=== PATIENT | female | born 1995 | race Caucasian/White ===

== ENCOUNTER 2017-01-04 19:49 | Emergency (ER) | payer BC ==
--- NOTE | 2017-01-04 20:22 | EDPHY ---
H & P Stated Complaint: ABD PAIN, FEVER 101 Time Seen by Provider: 01/04/17 20:04 HPI/ROS: CHIEF COMPLAINT: Fever, lower abdominal pain HISTORY OF PRESENT ILLNESS: 21-year-old female awoke this morning complaining of lower abdominal pain and cramping with diarrhea and nausea. No vomiting. This afternoon she developed fever and rigor. No radiation of pain. No urinary abnormality. No history of abdominal surgeries. No antecedent URI symptoms, facial swelling, sore throat. PRIMARY CARE PROVIDER: [facility] REVIEW OF SYSTEMS: A ten point review of systems was performed and is negative with the exception of the items mentioned in the HPI PAST MEDICAL & SURGICAL HISTORY: No pertinent medical or surgical history SOCIAL HISTORY: student PHYSICAL EXAM (Prior to examination, patient consented to physical exam, hands were washed and my usual and customary physical exam procedures followed) 1) GENERAL: Well-developed, well-nourished, alert and oriented. Appears nontoxic. Answering questions appropriately . 2) HEAD: Normocephalic, atraumatic 3) HEENT: Pupils equal, round, reactive to light bilaterally. Sclera anicteric. Nasopharynx, oropharynx, clear, no lesions. No tonsillar enlargement exudate. Ears bilaterally with normal tympanic membranes. 4) NECK: Full range of motion, no meningeal signs. 5) LUNGS: Clear auscultation bilaterally, no wheezes, no rhonchi, no retractions. 6) HEART: Regular rate and rhythm, no murmur, no heave, no gallop. 7) ABDOMEN: No guarding, tender to palpation lower abdomen including positive McBurney's point pain negative Ren's, negative Rovsing's, negative peritoneal sign, 8) MUSCULOSKELETAL: Moving all extremities, no focal areas of tenderness, no obvious trauma. No peripheral edema or discoloration. 9) BACK: positive left CVA tenderness, no midline vertebral tenderness, no fluctuance, no step-off, no obvious trauma, no visual or palpable abnormality. 10) SKIN: No rash, no petechiae. 11) Psychiatric: Patient is oriented X 3, there is no agitation. DIFFERENTIAL DIAGNOSIS: in no particular order including not limited to pyelonephritis, acute appendicitis, influenza, viral syndrome, gastroenteritis - Personal History LMP (Females 10-55): 1-7 Days Ago Current Tetanus/Diphtheria Vaccine: Yes - Medical/Surgical History Hx Asthma: No Hx Chronic Respiratory Disease: No Hx Diabetes: No Hx Cardiac Disease: No Hx Renal Disease: No Hx Cirrhosis: No Hx Alcoholism: No Hx HIV/AIDS: No Hx Splenectomy or Spleen Trauma: No Other PMH: WISDOM TEETTH, ACNE - Social History Smoking Status: Never smoked Constitutional: Initial Vital Signs Temperature (C) 37.6 C 01/04/17 19:59 Heart Rate 100 01/04/17 19:59 Respiratory Rate 18 01/04/17 19:59 Blood Pressure 109/70 01/04/17 19:59 O2 Sat (%) 94 01/04/17 19:59 O2 Delivery Mode Room Air Allergies/Adverse Reactions: No Known Allergies Allergy (Unverified 01/04/17 20:02) Home Medications: Medication Instructions Recorded Spironolactone 01/04/17 Medical Decision Making ED Course/Re-evaluation: 8:20 p.m.: Dip urinalysis is negative with the exception of ketones. 10:30 p.m.: Patient has been re-evaluated with serial exams. Discussed case Dr. Polo Lyons in the ER. I re-examined her abdomen at this time re-examined the patient. She appears significantly improved. I am unable to elicit any abdominal pain on exam. Discussed her imaging results showing a normal appendix. Doubt acute surgical abdominal pathology. Usual and customary abdominal precautions provided. Patient feels comfortable being discharged home. - Data Points Laboratory Results: Laboratory Results 01/04/17 20:42 01/04/17 20:42 01/04/17 20:42 WBC 8.84 10^3/uL (3.80-9.50) RBC 5.10 10^6/uL (4.18-5.33) Hgb 14.4 g/dL (12.6-16.3) Hct 43.2 % (38.0-47.0) MCV 84.7 fL (81.5-99.8) MCH 28.2 pg (27.9-34.1) MCHC 33.3 g/dL (32.4-36.7) RDW 13.6 % (11.5-15.2) Plt Count 213 10^3/uL (150-400) MPV 9.8 fL (8.7-11.7) Neut % (Auto) 90.2 H % (39.3-74.2) Lymph % (Auto) 4.3 L % (15.0-45.0) Hughes % (Auto) 4.5 % (4.5-13.0) Eos % (Auto) 0.6 % (0.6-7.6) Baso % (Auto) 0.2 L % (0.3-1.7) Nucleat RBC Rel Count 0.0 % (0.0-0.2) Absolute Neuts (auto) 7.97 H 10^3/uL (1.70-6.50) Absolute Lymphs (auto) 0.38 L 10^3/uL (1.00-3.00) Absolute Monos (auto) 0.40 10^3/uL (0.30-0.80) Absolute Eos (auto) 0.05 10^3/uL (0.03-0.40) Absolute Basos (auto) 0.02 10^3/uL (0.02-0.10) Absolute Nucleated RBC 0.00 10^3/uL (0-0.01) Immature Gran % 0.2 % (0.0-1.1) Immature Gran # 0.02 10^3/uL (0.00-0.10) Sodium 138 mEq/L (134-144) Potassium 4.5 mEq/L (3.5-5.2) Chloride 101 mEq/L (97-110) Carbon Dioxide 23 mEq/l (22-31) Anion Gap 14 mEq/L (8-16) BUN 10 mg/dL (7-23) Creatinine 0.8 mg/dL (0.6-1.0) Estimated GFR > 60 Glucose 78 mg/dL (70-100) Calcium 9.6 mg/dL (8.5-10.4) Total Bilirubin 2.1 H mg/dL (0.1-1.4) Conjugated Bilirubin 0.3 mg/dL (0.0-0.5) Unconjugated Bilirubin 1.8 H mg/dL (0.0-1.1) AST 26 IU/L (14-46) ALT 29 IU/L (9-52) Alkaline Phosphatase 60 IU/L (38-126) Total Protein 7.7 g/dL (6.3-8.2) Albumin 4.5 g/dL (3.5-5.0) Lipase 70.0 IU/L (23-300) Beta HCG, Qual NEGATIVE Influenza Typ A,B (DFA) NEGATIVE FOR FLU (NEGATIVE) Departure - Departure Disposition: Home, Routine, Self-Care Clinical Impression: Abdominal pain Qualifiers: Abdominal location: right lower quadrant Qualifier Code: (R10.31) Right lower quadrant pain Condition: Good Instructions: Acute Abdominal Pain (ED) Additional Instructions: Seek immediate medical attention if you develop new or worsening symptoms, if you develop fevers, chills, inability to tolerate oral intake or any other symptoms that concerns you. Referrals: [facility] [Outside] - 1 day without fail
[2017-01-04 20:58] LABS: % IMMATURE GRANULYOCYTES 0.2 % (0.0-1.1); ABSOLUTE IMMATURE GRANULOCYTES 0.02 10^3/uL (0.00-0.10); ADD DIFF? NO; ADD MORPH? NO; ADD SCAN? NO; ATYPICAL LYMPHOCYTE FLAG 10 (0-99); FRAGMENT RBC FLAG 0 (0-99); HEMATOCRIT 43.2 % (38.0-47.0); HEMOGLOBIN 14.4 g/dL (12.6-16.3); LEFT SHIFT FLG 0 (0-99); LIPEMIA HEMOLYSIS FLAG 80 (0-99); MEAN CELL HEMOGLOBIN 28.2 pg (27.9-34.1); MEAN CELL HEMOGLOBIN CONCENTR. 33.3 g/dL (32.4-36.7); MEAN CELL VOLUME 84.7 fL (81.5-99.8); MEAN PLATELET VOLUME 9.8 fL (8.7-11.7); PLATELET CLUMPS FLAG 0 (0-99); PLATELET COUNT 213 10^3/uL (150-400); RED CELL DISTRIBUTION WIDTH 13.6 % (11.5-15.2)
[2017-01-04 21:04] LABS: ALANINE AMINOTRANSFERASE 29 IU/L (9-52); ALBUMIN 4.5 g/dL (3.5-5.0); ALKALINE PHOSPHATASE 60 IU/L (38-126); ANION GAP 14 mEq/L (8-16); ASPARTATE AMINOTRANSFERASE 26 IU/L (14-46); BILIRUBIN,TOTAL 2.1 mg/dL (0.1-1.4); BILIRUBIN-CONJUGATED 0.3 mg/dL (0.0-0.5); BILIRUBIN-UNCONJUGATED 1.8 mg/dL (0.0-1.1); CALCIUM 9.6 mg/dL (8.5-10.4); CARBON DIOXIDE 23 mEq/l (22-31); CHLORIDE 101 mEq/L (97-110); CREATININE 0.8 mg/dL (0.6-1.0); GLOMERULAR FILTRATION RATE > 60; GLUCOSE 78 mg/dL (70-100); POTASSIUM 4.5 mEq/L (3.5-5.2); SODIUM 138 mEq/L (134-144); TOTAL PROTEIN 7.7 g/dL (6.3-8.2)
[2017-01-04] MEDS ORDERED: IOPAMIDOL (ISOVUE-300) 100 ML BTL IV ONE (21:18)
[2017-01-04 21:51] VITALS: RESP 16; O2SAT 95
--- NOTE | 2017-01-04 22:31 | CT ---
CT Scan of the Abdomen and Pelvis (With Contrast) Indication: Abdominal pain. Diarrhea. Vomiting. Technique: 90 mL of Isovue-300 were given intravenously by machine power injection. Multidetector h elical CT imaging was performed from the diaphragm to the symphysis pubis. Dose reduction techniques were utilized. Comparison: None. Findings: Abdomen: The lung bases are clear. The liver is normal in attenuation, without a focal lesion. The gallbladder is unremarkable. The pancreas is unremarkable. The spleen is unremarkable. Both adren al glands are normal in size and appearance. Both kidneys enhance normally, without evidence for a m ass or hydronephrosis. No significant abdominal lymphadenopathy. Pelvis: Some fluid-filled loops of small bowel are seen in the pelvis, without bowel wall thickening or adjacent inflammatory change or dilatation. Small fluid is seen in the cecum. There appears to be a small normal appendix. No significant free fluid in the pelvis. No evidence for a bladder calc ulus. No evidence for free intraperitoneal air. Impression: No CT findings for appendicitis. Probable mild enteritis. Results called and discussed with Demetrio Goldman PA-C, at January 04, 2017 at 2219 hours.
[2017-01-04] MEDS ORDERED: ONDANSETRON 4MG PREPACK#2 BTL TAKEHOME ONE (22:33)
[2017-01-04 22:52] VITALS: BP 105/59; PULSE 86; TEMP 98.8
== END 2017-01-04 22:51 | disposition home or self-care (01) ==
DX: R10.31 Right lower quadrant pain (principal)
CPT/HCPCS: Q9967